=== PATIENT | male | born 1980 | race Caucasian/White ===

== ENCOUNTER 2018-04-23 11:39 | Inpatient (IN) | payer OTHER ==
[2018-04-23] MEDS: FUROSEMIDE 40 MG INJ IV ×2 (12:22→18:32)
[2018-04-23] MEDS: NITROGLYCERIN 2% 1 GM OINT PKT TD (12:22)
[2018-04-23] MEDS: NITROGLYCERIN (SL) 0.4 MG TAB SL (12:23)
[2018-04-23 12:25] LABS: ADD MAN DIFF? NO
[2018-04-23] MEDS: ASPIRIN 81 MG TAB PO (12:28)
[2018-04-23 12:29] LABS: WHITE BLOOD COUNT 4.5 10^3/ul (4.8-10.8)
[2018-04-23 12:29] LABS: BASOPHILS % 0.4 % (0.0-2.0); EOSINOPHILS % 0.7 % (0.0-7.0); HEMATOCRIT 36.9 % (42.0-52.0); LYMPHOCYTES # 0.7 10^3/ul (0.8-2.9); LYMPHOCYTES % 14.9 % (15.0-51.0); MEAN CORPUSCULAR HEMOGLOBIN 33.3 pg (29.0-33.0); MEAN CORPUSCULAR HGB CONC 32.5 g/dl (32.0-37.0); MEAN CORPUSCULAR VOLUME 102.5 fl (82.0-101.0); MONOCYTE # 0.5 10^3/ul (0.3-0.9); MONOCYTES % 11.1 % (0.0-11.0); NEUTROPHIL # 3.3 10^3/ul (1.6-7.5); NEUTROPHILS % 72.5 % (39.0-77.0); PLATELET COUNT 215 10^3/UL (140-415); RED CELL DISTRIBUTION WIDTH 13.1 % (11.5-14.5)
[2018-04-23 12:46] LABS: ANION GAP 11 (5-13); BLOOD UREA NITROGEN 16 mg/dl (7-20); CALCIUM 8.9 mg/dl (8.4-10.2); CARBON DIOXIDE 21 mmol/L (21-31); CHLORIDE 101 mmol/L (97-110); CREATININE 1.09 mg/dl (0.61-1.24); Estimated GFR > 60 mL/min (>60); GLUCOSE 92 mg/dl (70-220); POTASSIUM 4.4 mmol/L (3.5-5.1); SODIUM 133 mmol/L (135-144)
[2018-04-23 12:58] LABS: TROPONIN-I 0.013 ng/ml (0.000-0.120)
[2018-04-23] MEDS ORDERED: ONDANSETRON 4 MG INJ IV ×2 (14:00→14:30)
[2018-04-23] MEDS ORDERED: ACETAMINOPHEN 325 MG TAB PO ×2 (14:00→14:30)
[2018-04-23] MEDS ORDERED: hydrALAzine 20 MG INJ IV (14:30)
[2018-04-23] MEDS ORDERED: HYDROCODONE/APAP (5/325) TAB PO (14:30)
[2018-04-23] MEDS ORDERED: NITROGLYCERIN (SL) 0.4 MG TAB SL (14:30)
[2018-04-23] MEDS ORDERED: MAGNESIUM HYDROXIDE 30ML CUP PO (14:30)
[2018-04-23] MEDS ORDERED: NACL 0.9% 3 ML SYG IV (14:30)
[2018-04-23] MEDS ORDERED: DOCUSATE SODIUM 100 MG CAP PO (14:30)
[2018-04-23] MEDS ORDERED: NA PHOSPHATE/BIPHOS 133 ML ENEMA PR (14:30)
[2018-04-23] MEDS ORDERED: LORAZEPAM 2 MG INJ IV (14:30)
[2018-04-23] MEDS: morphine 2 MG INJ IV ×2 (15:34→20:09)
[2018-04-23 16:09] LABS: FREE T4 (FREE THYROXINE) 1.75 ng/dl (0.79-2.35)
[2018-04-23] MEDS: ALBUTEROL/IPRATROPIUM (NEB) 3 ML AMP HHN (16:24)
[2018-04-23] MEDS: FERROUS SULFATE (EC) 325 MG TAB PO (20:09)
[2018-04-23 21:02] LABS: CREATINE KINASE 85 IU/L (23-200)
[2018-04-23 21:13] LABS: CK INDEX 1.5; CK-MB 1.28 ng/ml (0.0-2.4); TROPONIN-I < 0.012 ng/ml (0.000-0.120)
[2018-04-24] MEDS: morphine 2 MG INJ IV ×5 (00:31→19:55)
[2018-04-24 01:03] LABS: CREATINE KINASE 78 IU/L (23-200)
[2018-04-24 01:17] LABS: CK INDEX 1.6; CK-MB 1.26 ng/ml (0.0-2.4); TROPONIN-I 0.023 ng/ml (0.000-0.120)
[2018-04-24] MEDS: PANTOPRAZOLE 40 MG INJ IV (05:51)
[2018-04-24] MEDS: FUROSEMIDE 40 MG INJ IV ×2 (05:51→18:20)
[2018-04-24 06:40] LABS: ADD MAN DIFF? NO
[2018-04-24 06:55] LABS: BASOPHILS % 0.3 % (0.0-2.0); EOSINOPHILS # 0.1 10^3/ul (0.0-0.5); EOSINOPHILS % 3.4 % (0.0-7.0); HEMATOCRIT 34.2 % (42.0-52.0); HEMOGLOBIN 11.4 g/dl (14.0-18.0); LYMPHOCYTES # 0.6 10^3/ul (0.8-2.9); LYMPHOCYTES % 21.5 % (15.0-51.0); MEAN CORPUSCULAR HEMOGLOBIN 34.3 pg (29.0-33.0); MEAN CORPUSCULAR HGB CONC 33.3 g/dl (32.0-37.0); MEAN PLATELET VOLUME 9.2 fl (7.4-10.4); MONOCYTE # 0.4 10^3/ul (0.3-0.9); MONOCYTES % 13.5 % (0.0-11.0); NEUTROPHIL # 1.8 10^3/ul (1.6-7.5); PLATELET COUNT 191 10^3/UL (140-415); RED BLOOD COUNT 3.32 10^6/ul (4.70-6.10); RED CELL DISTRIBUTION WIDTH 13.2 % (11.5-14.5)
[2018-04-24 07:05] LABS: CHOL/HDL RATIO 2.2 RATIO; HDL CHOLESTEROL 38 mg/dl (28-63); LDL CHOLESTEROL,CALCULATED 38 mg/dl; TRIGLYCERIDES 52 mg/dl (0-149)
[2018-04-24 07:05] LABS: CHOLESTEROL 86 mg/dl (100-200)
[2018-04-24 07:34] LABS: ANION GAP 8 (5-13); BLOOD UREA NITROGEN 15 mg/dl (7-20); CALCIUM 8.4 mg/dl (8.4-10.2); CARBON DIOXIDE 24 mmol/L (21-31); CHLORIDE 106 mmol/L (97-110); CREATININE 1.04 mg/dl (0.61-1.24); Estimated GFR > 60 mL/min (>60); GLUCOSE 118 mg/dl (70-220); MAGNESIUM 1.7 mg/dl (1.7-2.5); PHOSPHORUS 3.5 mg/dl (2.5-4.9); POTASSIUM 3.5 mmol/L (3.5-5.1); SODIUM 138 mmol/L (135-144)
[2018-04-24 08:20] LABS: HEMOGLOBIN A1C 4.8 % (0-5.9)
[2018-04-24] MEDS: FERROUS SULFATE (EC) 325 MG TAB PO ×2 (09:05→20:02)
[2018-04-24] MEDS: LISINOPRIL 10 MG TAB PO ×2 (09:14→20:03)
[2018-04-25] MEDS: morphine 2 MG INJ IV ×5 (00:07→23:21)
[2018-04-25] MEDS: FUROSEMIDE 40 MG INJ IV ×2 (06:00→17:49)
[2018-04-25 06:19] LABS: ADD MAN DIFF? NO
[2018-04-25 06:27] LABS: BASOPHILS % 0.3 % (0.0-2.0); EOSINOPHILS # 0.1 10^3/ul (0.0-0.5); EOSINOPHILS % 4.4 % (0.0-7.0); HEMATOCRIT 36.5 % (42.0-52.0); HEMOGLOBIN 11.4 g/dl (14.0-18.0); LYMPHOCYTES # 0.7 10^3/ul (0.8-2.9); LYMPHOCYTES % 25.1 % (15.0-51.0); MEAN CORPUSCULAR HEMOGLOBIN 33.5 pg (29.0-33.0); MEAN CORPUSCULAR HGB CONC 31.2 g/dl (32.0-37.0); MEAN CORPUSCULAR VOLUME 107.4 fl (82.0-101.0); MEAN PLATELET VOLUME 9.5 fl (7.4-10.4); MONOCYTE # 0.4 10^3/ul (0.3-0.9); MONOCYTES % 13.9 % (0.0-11.0); NEUTROPHIL # 1.7 10^3/ul (1.6-7.5); PLATELET COUNT 189 10^3/UL (140-415); RED CELL DISTRIBUTION WIDTH 13.2 % (11.5-14.5)
[2018-04-25] MEDS: PANTOPRAZOLE 40 MG INJ IV (06:51)
[2018-04-25 07:00] LABS: ANION GAP 10 (5-13); BLOOD UREA NITROGEN 12 mg/dl (7-20); CALCIUM 8.4 mg/dl (8.4-10.2); CARBON DIOXIDE 25 mmol/L (21-31); CHLORIDE 103 mmol/L (97-110); CREATININE 1.01 mg/dl (0.61-1.24); Estimated GFR > 60 mL/min (>60); GLUCOSE 106 mg/dl (70-220); POTASSIUM 4.1 mmol/L (3.5-5.1); SODIUM 138 mmol/L (135-144)
[2018-04-25] MEDS: FERROUS SULFATE (EC) 325 MG TAB PO ×2 (08:22→20:42)
[2018-04-25] MEDS: LISINOPRIL 10 MG TAB PO ×2 (08:22→20:42)
[2018-04-25] MEDS: FUROSEMIDE 20 MG INJ IV (10:45)
[2018-04-26] MEDS: PANTOPRAZOLE 40 MG INJ IV (04:29)
[2018-04-26] MEDS: morphine 2 MG INJ IV ×2 (04:30→08:46)
[2018-04-26] MEDS: FUROSEMIDE 40 MG INJ IV ×2 (04:30→17:03)
[2018-04-26 05:39] LABS: ADD MAN DIFF? NO
[2018-04-26 05:42] LABS: WHITE BLOOD COUNT 3.6 10^3/ul (4.8-10.8)
[2018-04-26 05:42] LABS: BASOPHILS % 0.3 % (0.0-2.0); EOSINOPHILS # 0.1 10^3/ul (0.0-0.5); EOSINOPHILS % 3.4 % (0.0-7.0); HEMATOCRIT 37.6 % (42.0-52.0); HEMOGLOBIN 11.9 g/dl (14.0-18.0); LYMPHOCYTES # 0.9 10^3/ul (0.8-2.9); LYMPHOCYTES % 25.3 % (15.0-51.0); MEAN CORPUSCULAR HEMOGLOBIN 33.3 pg (29.0-33.0); MEAN CORPUSCULAR HGB CONC 31.6 g/dl (32.0-37.0); MEAN CORPUSCULAR VOLUME 105.3 fl (82.0-101.0); MEAN PLATELET VOLUME 9.4 fl (7.4-10.4); MONOCYTE # 0.4 10^3/ul (0.3-0.9); NEUTROPHIL # 2.1 10^3/ul (1.6-7.5); NEUTROPHILS % 59.7 % (39.0-77.0); PLATELET COUNT 205 10^3/UL (140-415); RED BLOOD COUNT 3.57 10^6/ul (4.70-6.10); RED CELL DISTRIBUTION WIDTH 13.1 % (11.5-14.5)
[2018-04-26 06:21] LABS: ANION GAP 9 (5-13); BLOOD UREA NITROGEN 16 mg/dl (7-20); CALCIUM 8.6 mg/dl (8.4-10.2); CARBON DIOXIDE 28 mmol/L (21-31); CHLORIDE 101 mmol/L (97-110); CREATININE 1.02 mg/dl (0.61-1.24); Estimated GFR > 60 mL/min (>60); GLUCOSE 106 mg/dl (70-220); SODIUM 138 mmol/L (135-144)
[2018-04-26] MEDS: FERROUS SULFATE (EC) 325 MG TAB PO (08:21)
[2018-04-26] MEDS: LISINOPRIL 10 MG TAB PO (08:22)
[2018-04-26] MEDS: HEPARIN (100 UNITS/ML) 5 ML SYG CATHETER (18:16)
[2018-04-27] MEDS ORDERED: SPIRONOLACTONE 25 MG TAB PO (09:00)
== END 2018-04-26 18:20 | disposition home or self-care (01) | DRG 292 ==
LOC: E/R 11:39 → 6WM 13:54
DX: I11.0 Hypertensive heart disease with heart failure (principal); C85.90 Non-Hodgkin lymphoma, unspecified, unspecified site; I42.0 Dilated cardiomyopathy; I50.23 Acute on chronic systolic (congestive) heart failure; F15.90 Other stimulant use, unspecified, uncomplicated; Z93.3 Colostomy status; Z96.642 Presence of left artificial hip joint; Z87.891 Personal history of nicotine dependence; Z90.49 Acquired absence of other specified parts of digestive tract; Z72.89 Other problems related to lifestyle
CPT/HCPCS: 36415; 71045; 80048; 80061; 82550; 82553; 83036; 83735; 84100; 84439; 84443; 84484; 85025; 93005; 93306; 93970; 94664; 96374; 99285-25

== ENCOUNTER 2018-05-10 06:04 | Inpatient (IN) | payer OTHER ==
[2018-05-10 07:12] LABS: ADD MAN DIFF? NO
[2018-05-10 07:19] LABS: BASOPHILS % 0.5 % (0.0-2.0); EOSINOPHILS # 0.1 10^3/ul (0.0-0.5); EOSINOPHILS % 1.2 % (0.0-7.0); LYMPHOCYTES # 0.6 10^3/ul (0.8-2.9); LYMPHOCYTES % 14.5 % (15.0-51.0); MEAN CORPUSCULAR HEMOGLOBIN 33.2 pg (29.0-33.0); MEAN CORPUSCULAR HGB CONC 33.3 g/dl (32.0-37.0); MEAN CORPUSCULAR VOLUME 99.5 fl (82.0-101.0); MONOCYTE # 0.4 10^3/ul (0.3-0.9); NEUTROPHIL # 3.1 10^3/ul (1.6-7.5); NEUTROPHILS % 73.6 % (39.0-77.0); PLATELET COUNT 212 10^3/UL (140-415); RED BLOOD COUNT 3.92 10^6/ul (4.70-6.10); RED CELL DISTRIBUTION WIDTH 13.1 % (11.5-14.5)
[2018-05-10 07:19] LABS: WHITE BLOOD COUNT 4.2 10^3/ul (4.8-10.8)
[2018-05-10 07:35] LABS: ALANINE AMINOTRANSFERASE 18 IU/L (13-69); ALBUMIN 3.7 g/dl (3.3-4.9); ALBUMIN/GLOBULIN RATIO 0.86; ALKALINE PHOSPHATASE 157 IU/L (42-121); ANION GAP 13 (5-13); ASPARTATE AMINO TRANSFERASE 38 IU/L (15-46); BILIRUBIN,INDIRECT 0.6 mg/dl (0-1.1); BILIRUBIN,TOTAL 0.6 mg/dl (0.2-1.3); BLOOD UREA NITROGEN 13 mg/dl (7-20); CALCIUM 8.9 mg/dl (8.4-10.2); CARBON DIOXIDE 20 mmol/L (21-31); CHLORIDE 102 mmol/L (97-110); CREATININE 0.96 mg/dl (0.61-1.24); Estimated GFR > 60 mL/min (>60); GLUCOSE 93 mg/dl (70-220); MODE NASAL CANNULA; MetHgb Venous 0.3 %; SODIUM 135 mmol/L (135-144); Sample Type Blood venous; Site VENOUS LINE; Venous COHb 0.6 %; Venous Fraction OxyHgb 93.7 %; Venous Oxygen Sat 94.6 mmHG (55.0-75.0)
[2018-05-10 07:47] LABS: B-TYPE NATRIURETIC PEPTIDE 4780 PG/ML (0-125); TROPONIN-I 0.019 ng/ml (0.000-0.120)
[2018-05-10] MEDS: FUROSEMIDE 40 MG INJ IV ×2 (07:50→17:17)
[2018-05-10] MEDS ORDERED: ACETAMINOPHEN 325 MG TAB PO ×2 (08:30→10:00)
[2018-05-10] MEDS ORDERED: ONDANSETRON 4 MG INJ IV ×2 (08:30→10:00)
[2018-05-10] MEDS ORDERED: morphine 2 MG INJ IV (10:00)
[2018-05-10] MEDS ORDERED: LORAZEPAM 1 MG TAB PO ×2 (10:00→18:00)
[2018-05-10] MEDS ORDERED: HYDROCODONE/APAP (5/325) TAB PO (10:00)
[2018-05-10] MEDS ORDERED: NACL 0.9% 3 ML SYG IV (10:00)
[2018-05-10] MEDS: morphine 4 MG/ML VIAL IV ×2 (10:29→23:46)
[2018-05-10] MEDS: TRIMETHOPRIM/SULFAMETHOX (DS) TAB PO (12:09)
[2018-05-10] MEDS ORDERED: IOHEXOL 14.3 MG(I)/ML (ADULT) BTL PO (12:30)
[2018-05-10 12:57] LABS: LACTATE DEHYDROGENASE 595 IU/L (313-618)
[2018-05-10 13:33] LABS: ERYTHROCYTE SEDIMENTATION RATE 35 mm/Hr (0-15)
[2018-05-10] MEDS: LORAZEPAM 1 MG TAB PO (16:23)
[2018-05-10] MEDS: BARIUM SULF 2% 450 ML BTL (BERRY SMOOTHIE) PO (16:47)
[2018-05-10] MEDS: IOHEXOL 300MG/ML 150 ML BTL (21:14)
[2018-05-10] MEDS: SOD CHLORIDE 0.9% 100 ML (21:14)
[2018-05-10] MEDS: DOCUSATE SODIUM 100 MG CAP PO (22:36)
[2018-05-10] MEDS: FERROUS SULFATE (EC) 325 MG TAB PO (22:36)
[2018-05-11] MEDS: morphine 4 MG/ML VIAL IV ×2 (04:31→10:02)
[2018-05-11 05:40] LABS: ADD MAN DIFF? NO
[2018-05-11 05:52] LABS: BASOPHILS % 0.3 % (0.0-2.0); EOSINOPHILS # 0.1 10^3/ul (0.0-0.5); EOSINOPHILS % 3.4 % (0.0-7.0); HEMATOCRIT 39.4 % (42.0-52.0); HEMOGLOBIN 12.7 g/dl (14.0-18.0); LYMPHOCYTES # 0.6 10^3/ul (0.8-2.9); LYMPHOCYTES % 20.2 % (15.0-51.0); MEAN CORPUSCULAR HEMOGLOBIN 32.6 pg (29.0-33.0); MEAN CORPUSCULAR HGB CONC 32.2 g/dl (32.0-37.0); MEAN CORPUSCULAR VOLUME 101.3 fl (82.0-101.0); MEAN PLATELET VOLUME 9.4 fl (7.4-10.4); MONOCYTE # 0.4 10^3/ul (0.3-0.9); MONOCYTES % 11.8 % (0.0-11.0); NEUTROPHIL # 1.9 10^3/ul (1.6-7.5); NEUTROPHILS % 64.3 % (39.0-77.0); PLATELET COUNT 208 10^3/UL (140-415); RED BLOOD COUNT 3.89 10^6/ul (4.70-6.10); RED CELL DISTRIBUTION WIDTH 13.4 % (11.5-14.5)
[2018-05-11 06:25] LABS: PHOSPHORUS 4.8 mg/dl (2.5-4.9)
[2018-05-11 06:25] LABS: MAGNESIUM 1.8 mg/dl (1.7-2.5)
[2018-05-11 06:28] LABS: ALANINE AMINOTRANSFERASE 17 IU/L (13-69); ALBUMIN 3.4 g/dl (3.3-4.9); ALBUMIN/GLOBULIN RATIO 0.85; ALKALINE PHOSPHATASE 138 IU/L (42-121); ANION GAP 11 (5-13); ASPARTATE AMINO TRANSFERASE 38 IU/L (15-46); BILIRUBIN,INDIRECT 0.5 mg/dl (0-1.1); BILIRUBIN,TOTAL 0.5 mg/dl (0.2-1.3); BLOOD UREA NITROGEN 18 mg/dl (7-20); CALCIUM 8.5 mg/dl (8.4-10.2); CARBON DIOXIDE 24 mmol/L (21-31); CHLORIDE 103 mmol/L (97-110); CREATININE 1.05 mg/dl (0.61-1.24); Estimated GFR > 60 mL/min (>60); GLUCOSE 113 mg/dl (70-220); POTASSIUM 4.1 mmol/L (3.5-5.1); SODIUM 138 mmol/L (135-144); TOTAL PROTEIN 7.4 g/dl (6.1-8.1)
[2018-05-11 06:30] LABS: ADD UMIC YES; UR ASCORBIC ACID NEGATIVE (NEGATIVE); UR BILIRUBIN (Dip) NEGATIVE (NEGATIVE); UR BLOOD (Dip) 2+ mg/dL (NEGATIVE); UR CLARITY CLEAR (CLEAR); UR COLOR YELLOW (YELLOW); UR GLUCOSE (Dip) NEGATIVE (NEGATIVE); UR KETONES (Dip) NEGATIVE (NEGATIVE); UR LEUKOCYTE ESTERASE (Dip) TRACE Leu/ul (NEGATIVE); UR NITRITE (Dip) NEGATIVE (NEGATIVE); UR RBC 3 /HPF (0-5); UR SPECIFIC GRAVITY (Dip) 1.044 (1.003-1.030); UR TOTAL PROTEIN (Dip) 1+ mg/dl (NEGATIVE); UR UROBILINOGEN (Dip) NEGATIVE (NEGATIVE); UR WBC 8 /HPF (0-5)
[2018-05-11 06:34] LABS: B-TYPE NATRIURETIC PEPTIDE 3890 PG/ML (0-125)
[2018-05-11 06:55] LABS: CREATINE KINASE 80 IU/L (23-200)
[2018-05-11] MEDS: FUROSEMIDE 40 MG INJ IV (07:00)
[2018-05-11 07:02] LABS: BARBITURATES Negative (NEGATIVE); BENZODIAZEPINES Negative (NEGATIVE); CANNABINOIDS Negative (NEGATIVE); CK INDEX 1.9; CK-MB 1.53 ng/ml (0.0-2.4); COCAINE Negative (NEGATIVE)
[2018-05-11 07:08] LABS: TROPONIN-I < 0.012 ng/ml (0.000-0.120)
[2018-05-11 07:18] LABS: OPIATES Positive (NEGATIVE)
[2018-05-11 07:28] LABS: AMPHETAMINE/METHAMPHETAMINE Positive (NEGATIVE)
[2018-05-11] MEDS: FERROUS SULFATE (EC) 325 MG TAB PO (08:04)
[2018-05-11] MEDS: DOCUSATE SODIUM 100 MG CAP PO (08:05)
[2018-05-11] MEDS: SPIRONOLACTONE 25 MG TAB PO (08:05)
[2018-05-11] MEDS: ELVITEGR/COBICIST/EMTRIC/TENOF 1 EACH TABLET PO (08:07)
[2018-05-11] MEDS: LISINOPRIL 10 MG TAB PO (08:07)
[2018-05-11] MEDS: ENOXAPARIN 40 MG/0.4 ML SYG SC (08:21)
== END 2018-05-11 15:32 | disposition home or self-care (01) | DRG 292 ==
LOC: E/R 06:04 → 6WM 08:12
DX: I11.0 Hypertensive heart disease with heart failure (principal); C85.90 Non-Hodgkin lymphoma, unspecified, unspecified site; I50.43 Acute on chronic combined systolic (congestive) and diastolic (congestive) heart failure; I42.0 Dilated cardiomyopathy; R10.9 Unspecified abdominal pain; I27.20 Pulmonary hypertension, unspecified
CPT/HCPCS: 36415; 71045; 71270; 74178; 76705; 80053; 80307; 81001; 82550; 82553; 82803; 83615; 83735; 83880; 84100; 84484; 85025; 85651; 93005; 93970; 96374; 99291-25

== ENCOUNTER 2018-10-04 05:05 | Emergency (ER) | payer OTHER ==
[2018-10-04] MEDS: FUROSEMIDE 20 MG TAB PO (06:55)
== END 2018-10-04 08:30 | disposition home or self-care (01) ==
LOC: FTE 05:05 → E/R 08:30
DX: I50.41 Acute combined systolic (congestive) and diastolic (congestive) heart failure (principal); I10 Essential (primary) hypertension
CPT/HCPCS: 71045; 93005; 99284-25